=== PATIENT | female | born 1985 | race Caucasian/White ===

== ENCOUNTER 2019-09-18 22:28 | Inpatient (IN) | payer OTHER ==
--- NOTE | 2019-09-18 22:53 | ER Document Report ---
ED General - General Chief Complaint: Chest Pain Stated Complaint: CHEST PAIN Time Seen by Provider: 09/18/19 22:53 Primary Care Provider: MEI LANDAVERDE NP-C [Primary Care Provider] - Follow up as needed Mode of Arrival: Medic Information source: Patient TRAVEL OUTSIDE OF THE [place] IN LAST 30 DAYS: No - HPI Onset: Other - 2 days ago Onset/Duration: Gradual Quality of pain: Pressure - of chest Severity: Moderate Pain Level: 3 Associated symptoms: Body/muscle aches, Chills, Nonproductive cough, Fever Exacerbated by: Denies Relieved by: Denies Similar symptoms previously: No Recently seen / treated by doctor: No Notes: 34 year old female with a history of MS on Tecfidera here in the ER for fevers, chills, sweats, chest pains, shortness of breath for the last 2 days. 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 The patient arrived with EMS tachycardic and Febrile and somewhat anxious. - Related Data Allergies/Adverse Reactions: iodine Allergy (Verified 09/19/19 01:58) Past Medical History - General Information source: Patient - Social History Smoking Status: Current Every Day Smoker Frequency of alcohol use: Occasional Drug Abuse: None Lives with: Family Family History: Reviewed & Not Pertinent Patient has suicidal ideation: No Patient has homicidal ideation: No Neurological Medical History: Reports: Other - Multiple Sclerosis Review of Systems - Review of Systems Constitutional: Chills, Fever, Malaise, Weakness EENT: Throat pain Cardiovascular: Chest pain Respiratory: Cough Gastrointestinal: No symptoms reported Genitourinary: No symptoms reported Female Genitourinary: No symptoms reported Musculoskeletal: No symptoms reported Skin: No symptoms reported Hematologic/Lymphatic: No symptoms reported Neurological/Psychological: No symptoms reported -: Yes All other systems reviewed and negative Physical Exam - Vital signs Vitals: Temp 102.8 F H 09/18/19 22:29 - Notes Notes: GENERAL: Well-appearing, well-nourished and in no acute distress. HEAD: Atraumatic, normocephalic. EYES: Pupils equal round and reactive to light, extraocular movements intact, sclera anicteric, conjunctiva are normal. ENT: External ears normal, nares patent, oropharynx clear without exudates. Moist mucous membranes. NECK: Normal range of motion, supple without lymphadenopathy or JVD. LUNGS: Breath sounds clear to auscultation bilaterally and equal. No wheezes rales or rhonchi. HEART: Tachycardic, normal rhythm without murmurs, rubs or gallops. ABDOMEN: Soft, nontender, normoactive bowel sounds. No guarding, no rebound. No masses appreciated. EXTREMITIES: Normal range of motion, no pitting or edema. No clubbing or cyanosis. NEUROLOGICAL: Cranial nerves II through XII grossly intact. Normal speech, normal gait. PSYCH: Normal mood, normal affect. SKIN: Warm, Dry, normal turgor, no rashes or lesions noted. 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 Patient was tachycardic and febrile on ER arrival. Patient treated with Tylenol and Fluids. 09/19/19 00:46 The patient has remained tachycardic and hypotensive. Patient is febrile and therefore meets sepsis criteria. The patient does not have an elevated lactic acid and she does not need broad spectrum antibiotics since a viral process (such as COVID) seems most likely. Patient is currently on 2L of NS. Will bolus a liter of LR next. 09/19/19 01:45 The patient's MAP has improved to 65 with fluids but she remains overall hypotensive. Patient's heart rate has normalized at this point. Dr. Street of the Hospitalist Team will admit the patient but he would like a D-Dimer 09/19/19 01:47 Patient's D Dimer is negative making PE unlikely. Patient admitted as O[facility] to [facility]. Rapid COVID test pending. - Vital Signs Vital signs: Temp Pulse Resp BP Pulse Ox 100.2 F 19 81/51 L 99 09/19/19 00:24 09/19/19 01:01 09/19/19 01:00 09/19/19 01:01 - Laboratory Result Diagrams: 09/18/19 23:25 09/18/19 23:25 Laboratory results interpreted by me: 09/18/19 09/18/19 23:25 23:25 WBC 10.7 H RBC 3.71 L Hct 35.4 L Absolute Neuts (auto) 8.3 H Sodium 135.8 L Potassium 3.4 L Glucose 141 H - Diagnostic Test Radiology reviewed: Image reviewed, Reports reviewed - EKG Interpretation by Me EKG shows normal: Sinus rhythm, [place], Intervals, QRS Complexes, ST-T Waves Rate: Tachycardia Rhythm: NSR Discharge - Discharge Clinical Impression: Fever Qualifiers: Fever type: unspecified Qualified Code(s): R50.9 - Fever, unspecified Hypotension Qualifiers: Hypotension type: unspecified hypotension type Qualified Code(s): I95.9 - Hypotension, unspecified Chest pain Qualifiers: Chest pain type: unspecified Qualified Code(s): R07.9 - Chest pain, unspecified Condition: Fair Disposition: ADMITTED OBSERVATION Admitting Provider: Yenifer (Hospitalist) Unit Admitted: IMCU Referrals: MEI LANDAVERDE SLITTING MACHINE FEEDER-C [Primary Care Provider] - Follow up as needed
[2019-09-18] MEDS ORDERED: NORMAL SALINE 1000 ML 1,000 ML IV ONE (23:00)
[2019-09-18] MEDS ORDERED: ACETAMINOPHEN 325 MG TABLET PO ONE (23:08)
[2019-09-18] MEDS ORDERED: ACETAMINOPHEN 325 MG TABLET ONE (23:09)
[2019-09-18] MEDS ORDERED: KETOROLAC TROMETHAMINE INJ/PF 30 MG/1 ML SDV IV ONE (23:25)
--- NOTE | 2019-09-18 23:55 | RADIOLOGY REPORT (SQ) ---
EXAM DESCRIPTION: XR CHEST 1 VIEW COMPLETED DATE/TME: 09/18/2019 22:36 CLINICAL HISTORY: 34 years, Female, chest pain COMPARISON: EXAM DESCRIPTION: CLINICAL HISTORY: chest pain COMPARISON: None. FINDINGS: Single view of the chest is submitted. Cardiac silhouette is normal. No focal parenchymal or pleural disease. No acute bony abnormality. There is no significant pulmonary vascular engorgement. IMPRESSION: No evidence of acute cardiopulmonary disease.
[2019-09-18 23:59] LABS: ABSOLUTE EOSINOPHILS # (AUTO) 0.1 10^3/uL (0.0-0.6); ABSOLUTE LYMPHOCYTES (AUTO) 1.6 10^3/uL (0.5-4.7); ABSOLUTE MONOCYTES (AUTO) 0.7 10^3/uL (0.1-1.4); ABSOLUTE NEUT (AUTO) 8.3 10^3/uL (1.7-8.2); BASOPHILS % (AUTO) 0.3 % (0-2); EOSINOPHILS % (AUTO) 0.8 % (0-6); HEMATOCRIT 35.4 % (36.0-47.0); HEMOGLOBIN 12.4 g/dL (12.0-15.5); MEAN CORPUSCULAR HEMOGLOBIN 33.3 pg (27.0-33.4); MEAN CORPUSCULAR HGB CONC 34.9 g/dL (32.0-36.0); MEAN CORPUSCULAR VOLUME 96 fl (80-97); MONOCYTES % (AUTO) 6.6 % (3-13); PLATELET COUNT 209 10^3/uL (150-450); RED BLOOD COUNT 3.71 10^6/uL (3.72-5.28); RED CELL DISTRIBUTION WIDTH 12.8 % (11.5-14.0); SEGMENTED NEUTROPHILS % (AUTO) 77.3 % (42-78); TOTAL CELLS COUNTED % (AUTO) 100 %; WHITE BLOOD COUNT 10.7 10^3/uL (4.0-10.5)
[2019-09-19 00:11] LABS: ALKALINE PHOSPHATASE 56 U/L (38-126); ANION GAP 8 (5-19); ASPARTATE AMINO TRANSFERASE 18 U/L (14-36); BILIRUBIN,TOTAL 0.6 mg/dL (0.2-1.3); BLOOD UREA NITROGEN 11 mg/dL (7-20); CALCIUM 8.9 mg/dL (8.4-10.2); CARBON DIOXIDE 25 mmol/L (22-30); CHLORIDE 103 mmol/L (98-107); CREATINE KINASE 56 U/L (30-135); GLUCOSE 141 mg/dL (75-110); INTERNATIONAL RATION (INR) 1.04; POTASSIUM 3.4 mmol/L (3.6-5.0); PROTHROMBIN TIME 13.6 SEC (11.4-15.4); TOTAL PROTEIN 6.5 g/dL (6.3-8.2)
[2019-09-19 00:25] LABS: CREATINE KINASE MB < 0.22 ng/mL (<4.55); TROPONIN I < 0.012 ng/mL
[2019-09-19] MEDS: NORMAL SALINE 1000 ML 1,000 ML IV PRN ×2 (00:31→03:00)
[2019-09-19] MEDS ORDERED: RINGERS SOLUTION,LACTATED 1,000 ML IV ONE (00:48)
[2019-09-19 00:57] LABS: A TYPE INFLUENZA AG NEGATIVE (NEGATIVE); B INFLUENZA AG NEGATIVE (NEGATIVE)
[2019-09-19 02:33] LABS: APPEARANCE,URINE CLEAR; BILIRUBIN,URINE NEGATIVE (NEGATIVE); COLOR,URINE YELLOW; GLUCOSE, URINE NEGATIVE (NEGATIVE); KETONES,URINE NEGATIVE (NEGATIVE); LEUKOCYTE ESTERASE,URINE NEGATIVE (NEGATIVE); NITRITE,URINE NEGATIVE (NEGATIVE); PROTEIN,URINE NEGATIVE (NEGATIVE); URINE SPECIFIC GRAVITY 1.005; UROBILINOGEN,URINE NEGATIVE mg/dL (<2.0)
[2019-09-19] MEDS ORDERED: PROMETHAZINE HCL INJ 25 MG/1 ML VIAL IV PRN (03:46)
[2019-09-19] MEDS ORDERED: MAG HYDROX/AL HYDROX/SIMETH SUSP 30 ML UDCUP PO PRN (03:46)
[2019-09-19] MEDS ORDERED: MAGNESIUM HYDROXIDE SUSP 30 ML UDCUP PO PRN (03:46)
[2019-09-19] MEDS ORDERED: NICOTINE 21 MG/24 HR PATCH.TD24 TD PRN (03:53)
[2019-09-19] MEDS ORDERED: ACETAMINOPHEN 325 MG TABLET PO PRN (03:53)
[2019-09-19] MEDS ORDERED: IBUPROFEN 800 MG TABLET PO PRN (03:53)
[2019-09-19] MEDS ORDERED: GUAIFENESIN SYRP 200 MG/10 ML UDC PO PRN (03:53)
[2019-09-19] MEDS ORDERED: MORPHINE SULFATE 10 MG/ML INJ IV PRN ×2 (04:25)
--- NOTE | 2019-09-19 04:35 | PDOC H&P ---
History of Present Illness Admission Date/PCP: 09/19/2019 01:32 VARGAS SHIRLEY Patient complains of: Chest pain History of Present Illness: JASSON FLORIAN is a 34 year old female who presented to the emergency room a 2- day history of chest pain. She admits to intermittent exquisitely severe sharp pain with deep breathing or cough first appearing 2 days ago with a gradual increase in severity. Her chest pains generally last less than a minute before resolving spontaneously and are noted to be in the left anterior chest and are most greatly worsened by attempting to lay on her left side. Her chest pain has been accompanied by dyspnea, rhinorrhea, pharyngitis and a nonproductive cough. Chest pain has been associated with fever, chills, diaphoresis, malaise and ague. 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 She denies other associated or accompanying signs and symptoms. She denies prior similar episodes. She has not identified any additional aggravating or am eliorating factors for her chest pain. In the emergency room she was found to be febrile, hypotensive and tachycardic. She was treated with IV fluids and acetaminophen with partial defervescence and lessening of her tachycardia however she still remained hypotensive with a blood pressure of 85/51 (MAP 61). Influenza A and B screens were negative. Strep screen, d-dimer and COVID-19 screen were negative. Past Medical History Cardiac Medical History: Denies: Coronary Artery Disease, DVT, Hyperlipidema, Hypertension, Pulmonary Embolism Pulmonary Medical History: Denies: Asthma, Chronic Obstructive Pulmonary Disease (COPD) EENT Medical History: Denies: Cataracts, Ears - Hearing aids Neurological Medical History: Reports: Multiple Sclerosis Denies: Hemorrhagic CVA, Ischemic CVA, Seizures Neurological History Note: Has been taking Tecfidera for approximately 4 years for multiple sclerosis with no exacerbations since initiating therapy. Endocrine Medical History: Denies: Diabetes Mellitus Type 1, Diabetes Mellitus Type 2, Hyperthyroidism, Hypothyroidism, Obesity Renal/ Medical History: Reports: Nephrolithiasis Denies: Chronic Kidney Disease Renal/ History Note: History of severe nephrolithiasis with her pregnancies Malignancy Medical History: Reports: None GI Medical History: Denies: Cirrhosis, Crohn's Disease, Gastroesophageal Reflux Disease, Hepatitis, Peptic Ulcer Disease, Ulcerative Colitis Musculoskeltal Medical History: Denies: Arthritis, Fibromyalgia, Gout Skin Medical History: Denies: Eczema, Psoriasis Psychiatric Medical History: Reports: Tobacco Dependency Denies: Alcohol Dependency, Substance Abuse Traumatic Medical History: Reports: None Hematology: Denies: Anemia, Bleeding Tendencies Infectious Medical History: Reports: None Past Surgical History Past Surgical History: Reports: Section - X 3, Tonsillectomy, Tubal Ligation, Other - Double-J tubes x3 and a percutaneous nephrostomy for kidney stones Social History Information Source: Patient Lives with: Spouse/Significant other Smoking Status: Current Every Day Smoker Electronic Cigarette use?: No Frequency of Alcohol Use: Occasional Hx Recreational Drug Use: No Drugs: None Hx Prescription Drug Abuse: No - Advance Directive Resuscitation Status: Full Code Surrogate healthcare decision maker:: Dillon Solis Family History Family History: DM, Hypertension. denies: CAD, Malignancy Parental Family History Reviewed: Yes Children Family History Reviewed: No Sibling(s) Family History Reviewed.: Yes Medication/Allergy Allergies/Adverse Reactions: iodine Allergy (Verified 09/19/19 01:58) Review of Systems Constitutional: PRESENT: as per HPI, chills, fever(s), other. ABSENT: headache(s) Eyes: ABSENT: visual disturbances, other - Eye pain Ears: ABSENT: hearing changes, other - Ear pain Nose, Mouth, and Throat: ABSENT: headache(s), sore throat Cardiovascular: PRESENT: as per HPI, chest pain. ABSENT: palpitations Respiratory: PRESENT: as per HPI, cough, dyspnea. ABSENT: hemoptysis, sputum Gastrointestinal: ABSENT: abdominal pain, constipation, diarrhea, nausea, vomiting Genitourinary: ABSENT: dysuria, hematuria Musculoskeletal: ABSENT: back pain, joint swelling Integumentary: PRESENT: as per HPI, diaphoresis. ABSENT: pruritus, rash Neurological: ABSENT: confusion, convulsions, focal weakness, memory loss, syncope Psychiatric: PRESENT: anxiety - Acute since learning of possible COVID-19 exposure.. ABSENT: depression Endocrine: ABSENT: cold intolerance, heat intolerance, polydipsia, polyphagia, polyuria Hematologic/Lymphatic: ABSENT: easy bleeding, easy bruising Allergic/Immunologic: ABSENT: seasonal rhinorrhea Physical Exam Vital Signs: Temp Pulse Resp BP Pulse Ox 100.2 F 19 81/51 L 99 09/19/19 00:24 09/19/19 01:01 09/19/19 01:00 09/19/19 01:01 Intake & Output 09/17/19 09/18/19 09/19/19 23:59 23:59 23:59 Intake Total 1000 Balance 1000 Weight 60.2 kg General appearance: PRESENT: cooperative, mild distress Head exam: PRESENT: atraumatic, normocephalic Eye exam: PRESENT: conjunctiva pink. ABSENT: conjunctival injection, scleral icterus Ear exam: PRESENT: normal external ear exam. ABSENT: bleeding, drainage Mouth exam: PRESENT: dry mucosa, neck supple Neck exam: ABSENT: thyromegaly, tracheal deviation Respiratory exam: PRESENT: clear to auscultation johnny, symmetrical, unlabored, other - Pleural friction rub noted left anterior chest in the midclavicular line at the third intercostal space Cardiovascular exam: PRESENT: RRR, tachycardia. ABSENT: clicks, gallop, rubs Pulses: PRESENT: normal radial pulses, normal dorsalis pedis pul Vascular exam: PRESENT: normal capillary refill. ABSENT: pallor GI/Abdominal exam: PRESENT: normal bowel sounds, soft Rectal exam: PRESENT: deferred Extremities exam: ABSENT: joint swelling, pedal edema Musculoskeletal exam: ABSENT: deformity, dislocation Neurological exam: PRESENT: alert, oriented to person, oriented to place, oriented to time, oriented to situation, CN II-XII grossly intact. ABSENT: motor sensory deficit Psychiatric exam: PRESENT: anxious, appropriate affect Skin exam: PRESENT: dry, intact, warm. ABSENT: jaundice, rash, urticaria Results Laboratory Results: 09/18/19 23:25 09/18/19 23:25 09/18/19 09/18/19 09/18/19 23:00 23:25 23:25 WBC 10.7 H RBC 3.71 L Hgb 12.4 Hct 35.4 L MCV 96 MCH 33.3 MCHC 34.9 RDW 12.8 Plt Count 209 Seg Neutrophils % 77.3 Sodium 135.8 L Potassium 3.4 L Chloride 103 Carbon Dioxide 25 Anion Gap 8 BUN 11 Creatinine 0.58 Est GFR ( Amer) > 60 Glucose 141 H Lactic Acid 1.0 Calcium 8.9 Total Bilirubin 0.6 AST 18 Alkaline Phosphatase 56 Total Protein 6.5 Albumin 4.0 09/18/19 09/18/19 23:25 23:25 Creatine Kinase 56 CK-MB (CK-2) < 0.22 Troponin I < 0.012 Impressions: Chest X-Ray 09/18/19 22:36 IMPRESSION: No evidence of acute cardiopulmonary disease. Assessment and Plan - Diagnosis (1) Chest pain, pleuritic Is this a current diagnosis for this admission?: Yes (2) Hypotension Qualifiers: Hypotension type: unspecified hypotension type Qualified Code(s): I95.9 - Hypotension, unspecified Is this a current diagnosis for this admission?: Yes (3) Tachycardia Is this a current diagnosis for this admission?: Yes (4) Fever Qualifiers: Fever type: unspecified Qualified Code(s): R50.9 - Fever, unspecified Is this a current diagnosis for this admission?: Yes (5) Multiple sclerosis Is this a current diagnosis for this admission?: Yes (6) Tobacco use disorder, continuous Is this a current diagnosis for this admission?: Yes - Plan Summary Summary: Patient will be admitted to the medical floor where she will receive routine supportive and symptomatic cares. She will be continued on IV fluid at 167 mL/h using normal saline with 20 mEq of KCl per liter. Her fever will be controlled with Tylenol as required. Her blood pressure and tachycardia were monitored closely with fluid bolus or other intervention provided as required. She will use morphine sulfate 2 to 4 mg IV every 2 hours as needed for pain. She will use Ativan 1 mg IV every 4 hours as needed anxiety or restlessness. She will enjoy a regular diet. CBCs, metabolic profiles and magnesium levels will be followed as appropriate. Patient will receive supplemental oxygen as required to maintain adequate oxygen saturation. She will be continued on her usual home medications, as appropriate, as soon as her medication list has been verified and reconciled. A nicotine replacement patch is available for the patient's use, if desired. Smoking cessation has been advised and counseled briefly at the bedside. - Time Time Spent with patient: 15-24 minutes Smoking Cessation Education: 3 to 10 minutes Medications reviewed and adjusted accordingly: Yes Anticipated discharge: Home - Inpatient Certification Based on my medical assessment, after consideration of the patient's comorbidities, presenting symptoms, or acuity I expect that the services needed warrant INPATIENT care.: No I certify that my determination is in accordance with my understanding of Medicare's requirements for reasonable and necessary INPATIENT services [42 CFR 412.3e].: No Medical Necessity: Need Close Monitoring Due to Risk of Patient Decompensation, Need For IV Fluids
[2019-09-19] MEDS: MORPHINE SULFATE 10 MG/ML INJ IV PRN ×9 (04:36→23:31)
[2019-09-19] MEDS: POTASSI CL 20 MEQ/D5NS 1L 20 MEQ/1,000 ML RTUINJ IV PRN ×2 (05:03→11:48)
[2019-09-19] MEDS: HEPARIN SOD (PORCINE) 5,000 UNIT/ML 1 ML VIAL SUBCUT SCH ×3 (05:05→22:28)
[2019-09-19 05:22] LABS: FREE T3 4.6 pg/mL (2.77-5.27)
[2019-09-19 05:36] LABS: THYROID STIMULATING HORMONE 1.69 uIU/mL (0.47-4.68)
[2019-09-19] MEDS: FAMOTIDINE 20 MG TABLET PO SCH ×2 (09:12→22:27)
[2019-09-19] MEDS: DOCUSATE SODIUM 100 MG CAPSULE PO SCH ×2 (09:19→17:02)
--- NOTE | 2019-09-19 10:15 | EKG REPORT ---
SEVERITY:- OTHERWISE NORMAL ECG - SINUS TACHYCARDIA : Confirmed by: Elle Greene MD 19-Sep-2019 10:15:36
[2019-09-19] MEDS ORDERED: AZITHROMYCIN 250 MG TABLET PO ONE (11:12)
--- NOTE | 2019-09-19 11:12 | Progress Note ---
Provider Note Provider Note: Patient was admitted after midnight I will put a provider note in. The chest x- ray is negative, white count is normal 10.7, d-dimer was normal, lactic acid was 1.0, flu swab negative, COVID negative ,rapid strep negative. Sed rate from this morning is normal at 26. CRP elevated at 87. EKG from last night just shows sinus tachycardia Vital signs this morning show the temperature 98.5 pulse of 88 blood pressure 91/53 and O2 sats 97% on room air. Him going to order a CT angiogram of the chest. I am going to start her off on p.o. Zithromax. Patient is on Motrin 800 every 6 hours as needed I am going to change this to 800 every 8 hours scheduled. He also has morphine ordered as needed for pain. I have explained all this to the patient. This morning I examined her with the nurse present she has slight tenderness to palpation over the left anterior chest wall but significant pain and tenderness that reproduces her symptoms with arm movements above the head and back and forth
--- NOTE | 2019-09-19 13:26 | RADIOLOGY REPORT (SQ) ---
EXAM DESCRIPTION: CT CHEST WITHOUT IMAGES COMPLETED DATE/TIME: 09/19/2019 1:03 pm REASON FOR STUDY: Chest wall pain COMPARISON: Radiographs from yesterday. TECHNIQUE: CT scan performed of the chest without intravenous contrast. Images reviewed with lung, soft tissue and bone windows. Reconstructed coronal and sagittal MPR images reviewed. All images st ored on PACS. All CT scanners at this facility use dose modulation, iterative reconstruction, and/or weight based d osing when appropriate to reduce radiation dose to as low as reasonably achievable (ALARA). [facility]: Dose Right [facility]: CareDose [facility]: Dose Right [facility]: Teradose 4D [facility]: Smart [employer] RADIATION DOSE: CT Rad equipment meets quality standard of care and radiation dose reduction techniq ues were employed. CTDIvol: 5.4 mGy. DLP: 188 mGy-cm. mGy. LIMITATIONS: No technical limitations. FINDINGS: LUNGS AND PLEURA: Left upper lobe patchy consolidation consistent with pneumonia. Focal a irspace disease also noted in the right middle lobe medially. Trace left pleural fluid with addition al subsegmental volume loss in the lower lobes. HILAR AND MEDIASTINAL STRUCTURES: No identified masses or abnormal nodes. No obvious aneurysm. HEART AND VASCULAR STRUCTURES: No aneurysm. No pericardial effusion. UPPER ABDOMEN: No significant findings. Limited exam. THYROID AND OTHER SOFT TISSUES: No masses. No adenopathy. BONES: No significant finding. HARDWARE: None in the chest. OTHER: No other significant findings. IMPRESSION: 1. Multifocal pneumonia, left upper lobe and right middle lobe. TECHNICAL DOCUMENTATION: JOB ID: [id number] Quality ID # [id number]: Final reports with documentation of one or more dose reduction techniques (e.g., Au tomated exposure control, adjustment of the mA and/or kV according to patient size, use of iterative reconstruction technique) 2010 [employer]- All Rights Reserved Reading location - IP/workstation name: [email or web address]
[2019-09-19] MEDS: IBUPROFEN 800 MG TABLET PO SCH ×2 (14:23→22:27)
[2019-09-20] MEDS: LORAZEPAM INJ 2 MG/1 ML VIAL IV PRN ×2 (02:03→07:33)
[2019-09-20 05:59] LABS: HEMOGLOBIN 11.5 g/dL (12.0-15.5); MEAN CORPUSCULAR HEMOGLOBIN 33.7 pg (27.0-33.4); MEAN CORPUSCULAR HGB CONC 34.9 g/dL (32.0-36.0); MEAN CORPUSCULAR VOLUME 96 fl (80-97); PLATELET COUNT 185 10^3/uL (150-450); RED BLOOD COUNT 3.42 10^6/uL (3.72-5.28); WHITE BLOOD COUNT 10.1 10^3/uL (4.0-10.5)
[2019-09-20 06:22] LABS: ANION GAP 7 (5-19); BLOOD UREA NITROGEN 5 mg/dL (7-20); CALCIUM 8.6 mg/dL (8.4-10.2); CARBON DIOXIDE 24 mmol/L (22-30); CHLORIDE 107 mmol/L (98-107); GLUCOSE 89 mg/dL (75-110); POTASSIUM 3.9 mmol/L (3.6-5.0)
[2019-09-20] MEDS: IBUPROFEN 800 MG TABLET PO SCH ×3 (06:42→22:07)
[2019-09-20] MEDS: HEPARIN SOD (PORCINE) 5,000 UNIT/ML 1 ML VIAL SUBCUT SCH ×3 (06:43→22:07)
[2019-09-20] MEDS ORDERED: ESZOPICLONE 2 MG PO PRN (07:32)
[2019-09-20] MEDS: MORPHINE SULFATE 10 MG/ML INJ IV PRN ×3 (07:34→22:05)
[2019-09-20] MEDS ORDERED: ZOLPIDEM TARTRATE 5 MG TABLET PO PRN ×2 (07:54)
[2019-09-20] MEDS ORDERED: (PENDING PHARMACY ID) (Duloxetine Hcl [Duloxetine Hcl] 60 MG) PO SCH (10:00)
[2019-09-20] MEDS ORDERED: DULOXETINE HCL 30 MG CAPSULE.DR PO SCH (10:00)
[2019-09-20] MEDS: SPIRONOLACTONE 25 MG TABLET PO SCH (10:09)
[2019-09-20] MEDS: FAMOTIDINE 20 MG TABLET PO SCH ×2 (10:09→22:07)
[2019-09-20] MEDS: CHOLECALCIFEROL (D3) 1,000 UNIT (25 MCG) TABLET PO SCH (10:10)
[2019-09-20] MEDS: AZITHROMYCIN 500 MG in DEXTROSE 5%-WATER 250 ML IV SCH (10:10)
[2019-09-20] MEDS: DULOXETINE HCL 30 MG CAPSULE.DR PO SCH (10:10)
[2019-09-20] MEDS: DOCUSATE SODIUM 100 MG CAPSULE PO SCH ×2 (10:10→17:12)
--- NOTE | 2019-09-20 10:37 | PDOC PROGRESS REPORT ---
Subjective Progress Note for:: 09/20/19 Reason For Visit: SIRS, FEVER, PLEURITIC CHEST PAIN, TACHYCARDIA, 09/20/2019 Pneumonia, left chest wall pain, tachycardia, sepsis, anxiety, depression, fever, tobacco abuse, multiple sclerosis Physical Exam Vital Signs: Temp Pulse Resp BP Pulse Ox 99.9 F 110 H 17 97/59 L 93 09/20/19 08:15 09/20/19 08:15 09/20/19 08:15 09/20/19 08:15 09/20/19 08:15 Intake & Output 09/19/19 09/20/19 09/21/19 06:59 06:59 06:59 Intake Total 4000 3108 Output Total 2450 Balance 4000 658 Weight 60.2 kg 59.6 kg General appearance: PRESENT: mild distress Respiratory exam: PRESENT: decreased breath sounds Cardiovascular exam: PRESENT: RRR. ABSENT: diastolic murmur, rubs, systolic murmur Neurological exam: PRESENT: alert, awake, oriented to person, oriented to place, oriented to time, oriented to situation, CN II-XII grossly intact. ABSENT: motor sensory deficit Psychiatric exam: PRESENT: anxious Results Laboratory Results: 09/20/19 05:10 09/20/19 05:10 09/20/19 09/20/19 05:10 05:10 WBC 10.1 RBC 3.42 L Hgb 11.5 L Hct 33.0 L MCV 96 MCH 33.7 H MCHC 34.9 RDW 13.0 Plt Count 185 Sodium 138.4 Potassium 3.9 Chloride 107 Carbon Dioxide 24 Anion Gap 7 BUN 5 L Creatinine 0.55 Est GFR ( Amer) > 60 Glucose 89 Calcium 8.6 Magnesium 1.9 09/18/19 09/18/19 23:25 23:25 Creatine Kinase 56 CK-MB (CK-2) < 0.22 Troponin I < 0.012 Impressions: Chest X-Ray 09/18/19 22:36 IMPRESSION: No evidence of acute cardiopulmonary disease. Chest CT 09/19/19 00:00 IMPRESSION: 1. Multifocal pneumonia, left upper lobe and right middle lobe. Assessment and Plan - Diagnosis (1) Pneumonia Is this a current diagnosis for this admission?: Yes (2) Anxiety Is this a current diagnosis for this admission?: Yes (3) Depression Is this a current diagnosis for this admission?: Yes (4) Chest pain Qualifiers: Chest pain type: unspecified Qualified Code(s): R07.9 - Chest pain, unspecified Is this a current diagnosis for this admission?: Yes (5) Fever Qualifiers: Fever type: unspecified Qualified Code(s): R50.9 - Fever, unspecified Is this a current diagnosis for this admission?: Yes (6) Hypotension Qualifiers: Hypotension type: unspecified hypotension type Qualified Code(s): I95.9 - Hypotension, unspecified Is this a current diagnosis for this admission?: Yes (7) Multiple sclerosis Is this a current diagnosis for this admission?: Yes (8) Tachycardia Is this a current diagnosis for this admission?: Yes (9) Tobacco use disorder, continuous Is this a current diagnosis for this admission?: Yes - Plan Summary Summary: Patient will be admitted to the medical floor where she will receive routine supportive and symptomatic cares. She will be continued on IV fluid at 167 mL/h using normal saline with 20 mEq of KCl per liter. Her fever will be controlled with Tylenol as required. Her blood pressure and tachycardia were monitored closely with fluid bolus or other intervention provided as required. She will use morphine sulfate 2 to 4 mg IV every 2 hours as needed for pain. She will use Ativan 1 mg IV every 4 hours as needed anxiety or restlessness. She will enjoy a regular diet. CBCs, metabolic profiles and magnesium levels will be followed as appropriate. Patient will receive supplemental oxygen as required to maintain adequate oxygen saturation. She will be continued on her usual home medications, as appropriate, as soon as her medication list has been verified and reconciled. A nicotine replacement patch is available for the patient's use, if desired. Smoking cessation has been advised and counseled briefly at the bedside. 09/20/2019 Patient continues to be afebrile 98 3 , pulse is between 80 and 100 , blood pressure is normal for her 97/65 ,O2 sat 95% on room air White count is gone down slightly to 10.1 blood cultures negative x24 hours. Have added Percocet every 6 hours as needed her medicine for multiple sclerosis has been added. Unfortunately we do not have Lunesta here These were all medicine she was on at home which she was taking at home. Also added BuSpar for anxiety, which seems to be worse because of her mother's health condition and the fact that the patient is in the hospital here. Patient appears to be stable from her pneumonia which is her admitting diagnosis, patient came in with fever and pleuritic left-sided chest wall pain. Plain chest film did not show pneumonia however CT scan did. She is currently on IV Zithromax - Time Time Spent with patient: 25-34 minutes
[2019-09-20] MEDS: BUSPIRONE HCL 10 MG TABLET PO SCH ×2 (11:56→22:07)
[2019-09-20] MEDS: OXYCODONE-ACETAMINOPHEN 5-325 MG TABLET PO PRN (14:29)
[2019-09-20] MEDS ORDERED: (PENDING PHARMACY ID) (Metformin Hcl [Metformin Hcl Er] 500 MG) PO SCH ×2 (17:00)
[2019-09-20] MEDS: METFORMIN HCL 500 MG TABLET PO SCH (17:28)
[2019-09-21] MEDS: MORPHINE SULFATE 10 MG/ML INJ IV PRN ×4 (05:32→20:26)
[2019-09-21] MEDS: IBUPROFEN 800 MG TABLET PO SCH ×3 (05:35→21:20)
[2019-09-21] MEDS: HEPARIN SOD (PORCINE) 5,000 UNIT/ML 1 ML VIAL SUBCUT SCH ×3 (05:35→21:20)
[2019-09-21 06:49] LABS: HEMATOCRIT 32.2 % (36.0-47.0); HEMOGLOBIN 11.4 g/dL (12.0-15.5); MEAN CORPUSCULAR HEMOGLOBIN 33.7 pg (27.0-33.4); MEAN CORPUSCULAR HGB CONC 35.2 g/dL (32.0-36.0); MEAN CORPUSCULAR VOLUME 96 fl (80-97); PLATELET COUNT 195 10^3/uL (150-450); RED BLOOD COUNT 3.37 10^6/uL (3.72-5.28); RED CELL DISTRIBUTION WIDTH 12.6 % (11.5-14.0); WHITE BLOOD COUNT 8.9 10^3/uL (4.0-10.5)
[2019-09-21] MEDS: BUSPIRONE HCL 10 MG TABLET PO SCH ×2 (09:11→21:20)
[2019-09-21] MEDS: CHOLECALCIFEROL (D3) 1,000 UNIT (25 MCG) TABLET PO SCH (09:11)
[2019-09-21] MEDS: OXYCODONE-ACETAMINOPHEN 5-325 MG TABLET PO PRN ×3 (09:11→19:03)
[2019-09-21] MEDS: SPIRONOLACTONE 25 MG TABLET PO SCH (09:11)
[2019-09-21] MEDS: METFORMIN HCL 500 MG TABLET PO SCH ×2 (09:11→17:07)
[2019-09-21] MEDS: FAMOTIDINE 20 MG TABLET PO SCH ×2 (09:11→21:20)
[2019-09-21] MEDS: DULOXETINE HCL 30 MG CAPSULE.DR PO SCH (09:11)
[2019-09-21] MEDS: AZITHROMYCIN 500 MG in DEXTROSE 5%-WATER 250 ML IV SCH (09:12)
[2019-09-21] MEDS: DOCUSATE SODIUM 100 MG CAPSULE PO SCH ×2 (09:12→17:07)
--- NOTE | 2019-09-21 09:15 | PDOC PROGRESS REPORT ---
Subjective Progress Note for:: 09/21/19 Subjective:: 34 year old female who presented to the emergency room a 2-day history of chest pain. She admits to intermittent exquisitely severe sharp pain with deep breathing or cough first appearing 2 days ago with a gradual increase in severity. Her chest pains generally last less than a minute before resolving spontaneously and are noted to be in the left anterior chest and are most greatly worsened by attempting to lay on her left side. Her chest pain has been accompanied by dyspnea, rhinorrhea, pharyngitis and a nonproductive cough. Chest pain has been associated with fever, chills, diaphoresis, malaise and ague. 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 She denies other associated or accompanying signs and symptoms. She denies prior similar episodes. She has not identified any additional aggravating or ameliorating factors for her chest pain. In the emergency room she was found to be febrile, hypotensive and tachycardic. She was treated with IV fluids and acetaminophen with partial defervescence and lessening of her tachycardia however she still remained hypotensive with a blood pressure of 85/51 (MAP 61). Influenza A and B screens were negative. Strep screen, d-dimer and COVID-19 screen were negative. 09/20/2019 Pneumonia, left chest wall pain, tachycardia, sepsis, anxiety, depression, fever, tobacco abuse, multiple sclerosis 09/21/2019-patient is comfortably in the bed communicating well. Still complaining of left-sided chest pain. On IV morphine 2 mg every 4 hours and also on Percocets. Blood cultures are negative so far. COVID testing is negative. T-max is 99.0 this morning. And is to repeat the chest x-ray tomorrow white cell count is within normal limits. She is a smoker smoking counseling was provided today. Reason For Visit: SIRS, FEVER, PLEURITIC CHEST PAIN, TACHYCARDIA, Physical Exam Vital Signs: Temp Pulse Resp BP Pulse Ox 99.0 F 76 18 106/63 95 09/20/19 15:09 09/21/19 07:00 09/20/19 15:09 09/20/19 15:09 09/20/19 15:09 Intake & Output 09/20/19 09/21/19 09/22/19 06:59 06:59 06:59 Intake Total 3108 1080 Output Total 2450 800 Balance 658 280 Weight 59.6 kg 58.9 kg General appearance: PRESENT: no acute distress, well-developed, well-nourished Head exam: PRESENT: atraumatic Eye exam: PRESENT: PERRLA Teeth exam: PRESENT: poor dentation Neck exam: ABSENT: carotid bruit, JVD, lymphadenopathy, thyromegaly Respiratory exam: PRESENT: decreased breath sounds Cardiovascular exam: PRESENT: RRR. ABSENT: diastolic murmur, rubs, systolic murmur Vascular exam: PRESENT: normal capillary refill GI/Abdominal exam: PRESENT: normal bowel sounds, soft. ABSENT: distended, guarding, mass, organolmegaly, rebound, tenderness Rectal exam: PRESENT: deferred Extremities exam: PRESENT: full ROM. ABSENT: calf tenderness, clubbing, pedal edema Neurological exam: PRESENT: alert, awake, oriented to person, oriented to place, oriented to time, oriented to situation, CN II-XII grossly intact. ABSENT: motor sensory deficit Psychiatric exam: PRESENT: appropriate affect, normal mood. ABSENT: homicidal ideation, suicidal ideation Results Laboratory Results: 09/21/19 05:21 09/20/19 05:10 09/21/19 09/21/19 05:21 05:21 WBC 8.9 RBC 3.37 L Hgb 11.4 L Hct 32.2 L MCV 96 MCH 33.7 H MCHC 35.2 RDW 12.6 Plt Count 195 Magnesium 2.1 09/18/19 09/18/19 23:25 23:25 Creatine Kinase 56 CK-MB (CK-2) < 0.22 Troponin I < 0.012 Impressions: Chest X-Ray 09/18/19 22:36 IMPRESSION: No evidence of acute cardiopulmonary disease. Chest CT 09/19/19 00:00 IMPRESSION: 1. Multifocal pneumonia, left upper lobe and right middle lobe. Assessment and Plan - Diagnosis (1) Pneumonia Is this a current diagnosis for this admission?: Yes Plan: 09/21/2019-patient admitted for chest pains found to have a fever of 103 and a chest x-ray and CT scan indicated of multifocal pneumonia. Cover test is negative. Blood cultures are negative. WBC count this morning is 8900. T-max is 99. Pulse ox is 95% on room air. Patient is presently on Zithromax 500 mg IV daily. plan is to repeat the chest x-ray tomorrow and labs tomorrow. Again counseling was provided. (2) Anxiety Is this a current diagnosis for this admission?: Yes Plan: 09/21/2019-patient is presently on BuSpar 10 mg p.o. every 12 hours, Cymbalta 60 mg daily, lorazepam 1 mg every 4 as needed. Denies any anxiety depression at this time. (3) Chest pain, pleuritic Is this a current diagnosis for this admission?: Yes Plan: 09/21/2019-patient is still complaining of left-sided chest pain receiving morphine 2 mg IV every 4 as needed, Percocet 1 tablet every 6 as needed. Plan is to continue the present management at this time. To arrange for a K pad to place in the left side of the chest. (4) Hypotension Qualifiers: Hypotension type: unspecified hypotension type Qualified Code(s): I95.9 - Hypotension, unspecified Is this a current diagnosis for this admission?: Yes Plan: 09/21/2019-blood pressure today is 106/63 asymptomatic. Plan is to hold spironolactone for today. (5) Multiple sclerosis Is this a current diagnosis for this admission?: Yes (6) Tachycardia Is this a current diagnosis for this admission?: Yes Plan: 09/21/2019-heart rate today 68. Tachycardia is resolved. (7) Tobacco use disorder, continuous Is this a current diagnosis for this admission?: No Plan: 09/21/2019-patient is a daily smoker smoking for the last 4 years. Smoking counseling was provided. Advised to quit smoking. - Plan Summary Summary: Patient will be admitted to the medical floor where she will receive routine supportive and symptomatic cares. She will be continued on IV fluid at 167 mL/h using normal saline with 20 mEq of KCl per liter. Her fever will be controlled with Tylenol as required. Her blood pressure and tachycardia were monitored closely with fluid bolus or other intervention provided as required. She will use morphine sulfate 2 to 4 mg IV every 2 hours as needed for pain. She will use Ativan 1 mg IV every 4 hours as needed anxiety or restlessness. She will enjoy a regular diet. CBCs, metabolic profiles and magnesium levels will be followed as appropriate. Patient will receive supplemental oxygen as required to maintain adequate oxygen saturation. She will be continued on her usual home medications, as appropriate, as soon as her medication list has been verified and reconciled. A nicotine replacement patch is available for the patient's use, if desired. Smoking cessation has been advised and counseled briefly at the bedside. 09/20/2019 Patient continues to be afebrile 98 3 , pulse is between 80 and 100 , blood pressure is normal for her 97/65 ,O2 sat 95% on room air White count is gone down slightly to 10.1 blood cultures negative x24 hours. Have added Percocet every 6 hours as needed her medicine for multiple sclerosis has been added. Unfortunately we do not have Lunesta here These were all medicine she was on at home which she was taking at home. Also added BuSpar for anxiety, which seems to be worse because of her mother's health condition and the fact that the patient is in the hospital here. Patient appears to be stable from her pneumonia which is her admitting diagnosis, patient came in with fever and pleuritic left-sided chest wall pain. Plain chest film did not show pneumonia however CT scan did. She is currently on IV Zithromax
[2019-09-22] MEDS: MORPHINE SULFATE 10 MG/ML INJ IV PRN ×2 (00:28→09:18)
[2019-09-22] MEDS: LORAZEPAM INJ 2 MG/1 ML VIAL IV PRN (00:34)
[2019-09-22] MEDS: HEPARIN SOD (PORCINE) 5,000 UNIT/ML 1 ML VIAL SUBCUT SCH (05:45)
[2019-09-22] MEDS: IBUPROFEN 800 MG TABLET PO SCH (05:45)
[2019-09-22 06:15] LABS: ABSOLUTE EOSINOPHILS # (AUTO) 0.3 10^3/uL (0.0-0.6); ABSOLUTE MONOCYTES (AUTO) 0.7 10^3/uL (0.1-1.4); ABSOLUTE NEUT (AUTO) 4.1 10^3/uL (1.7-8.2); BASOPHILS % (AUTO) 0.4 % (0-2); HEMATOCRIT 30.6 % (36.0-47.0); HEMOGLOBIN 10.7 g/dL (12.0-15.5); LYMPHOCYTES % (AUTO) 27.9 % (13-45); MEAN CORPUSCULAR HEMOGLOBIN 33.4 pg (27.0-33.4); MEAN CORPUSCULAR HGB CONC 35.1 g/dL (32.0-36.0); MEAN CORPUSCULAR VOLUME 95 fl (80-97); MONOCYTES % (AUTO) 9.9 % (3-13); PLATELET COUNT 207 10^3/uL (150-450); RED CELL DISTRIBUTION WIDTH 12.6 % (11.5-14.0); SEGMENTED NEUTROPHILS % (AUTO) 57.8 % (42-78); TOTAL CELLS COUNTED % (AUTO) 100 %; WHITE BLOOD COUNT 7.1 10^3/uL (4.0-10.5)
[2019-09-22 06:33] LABS: ALBUMIN 3.3 g/dL (3.5-5.0); ALKALINE PHOSPHATASE 46 U/L (38-126); ANION GAP 8 (5-19); ASPARTATE AMINO TRANSFERASE 14 U/L (14-36); BLOOD UREA NITROGEN 14 mg/dL (7-20); CALCIUM 8.4 mg/dL (8.4-10.2); CARBON DIOXIDE 24 mmol/L (22-30); CHLORIDE 106 mmol/L (98-107); GLUCOSE 92 mg/dL (75-110); POTASSIUM 3.8 mmol/L (3.6-5.0); TOTAL PROTEIN 5.6 g/dL (6.3-8.2)
[2019-09-22 06:38] LABS: BILIRUBIN,TOTAL < 0.1 mg/dL (0.2-1.3)
[2019-09-22] MEDS: METFORMIN HCL 500 MG TABLET PO SCH (07:46)
[2019-09-22] MEDS: OXYCODONE-ACETAMINOPHEN 5-325 MG TABLET PO PRN (07:46)
--- NOTE | 2019-09-22 08:33 | PDOC PROGRESS REPORT ---
Subjective Progress Note for:: 09/22/19 Subjective:: 34 year old female who presented to the emergency room a 2-day history of chest pain. She admits to intermittent exquisitely severe sharp pain with deep breathing or cough first appearing 2 days ago with a gradual increase in severity. Her chest pains generally last less than a minute before resolving spontaneously and are noted to be in the left anterior chest and are most greatly worsened by attempting to lay on her left side. Her chest pain has been accompanied by dyspnea, rhinorrhea, pharyngitis and a nonproductive cough. Chest pain has been associated with fever, chills, diaphoresis, malaise and ague. 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 She denies other associated or accompanying signs and symptoms. She denies prior similar episodes. She has not identified any additional aggravating or ameliorating factors for her chest pain. In the emergency room she was found to be febrile, hypotensive and tachycardic. She was treated with IV fluids and acetaminophen with partial defervescence and lessening of her tachycardia however she still remained hypotensive with a blood pressure of 85/51 (MAP 61). Influenza A and B screens were negative. Strep screen, d-dimer and COVID-19 screen were negative. 09/20/2019 Pneumonia, left chest wall pain, tachycardia, sepsis, anxiety, depression, fever, tobacco abuse, multiple sclerosis 09/21/2019-patient is comfortably in the bed communicating well. Still complaining of left-sided chest pain. On IV morphine 2 mg every 4 hours and also on Percocets. Blood cultures are negative so far. COVID testing is negative. T-max is 99.0 this morning. And is to repeat the chest x-ray tomorrow white cell count is within normal limits. She is a smoker smoking counseling was provided today. 09/22/19-at the time of admission Covid test is came back negative. Patient is requesting to repeat the cover test. She is concerned about false negatives. We are going to call [facility] to go through the case and get further advice. Chest x-ray was done this morning as a follow-up report is pending. Patient has a T-max of 99 last night she is concerned about fever. This morning T-max is 98. Blood cultures are negative. Cultures came back group B streptococcus normal respiratory rohit. Reason For Visit: PNEUMONIA,CHEST PAIN Physical Exam Vital Signs: Temp Pulse Resp BP Pulse Ox 97.7 F 71 16 90/48 L 94 09/22/19 03:38 09/22/19 07:00 09/22/19 03:38 09/22/19 03:38 09/22/19 03:38 Intake & Output 09/21/19 09/22/19 09/23/19 06:59 06:59 06:59 Intake Total 1080 2807 Output Total 800 2050 Balance 280 757 Weight 58.9 kg 62 kg General appearance: PRESENT: no acute distress, well-developed, well-nourished Head exam: PRESENT: atraumatic Eye exam: PRESENT: PERRLA Mouth exam: PRESENT: moist, tongue midline Teeth exam: PRESENT: poor dentation Neck exam: ABSENT: carotid bruit, JVD, lymphadenopathy, thyromegaly Respiratory exam: PRESENT: decreased breath sounds Cardiovascular exam: PRESENT: RRR. ABSENT: diastolic murmur, rubs, systolic murmur GI/Abdominal exam: PRESENT: normal bowel sounds, soft. ABSENT: distended, gua rding, mass, organolmegaly, rebound, tenderness Rectal exam: PRESENT: deferred Extremities exam: PRESENT: full ROM. ABSENT: calf tenderness, clubbing, pedal edema Neurological exam: PRESENT: alert, awake, oriented to person, oriented to place, oriented to time, oriented to situation, CN II-XII grossly intact. ABSENT: jennifer r sensory deficit Psychiatric exam: PRESENT: appropriate affect, normal mood. ABSENT: homicidal ideation, suicidal ideation Results Laboratory Results: 09/22/19 05:35 09/22/19 05:35 09/22/19 09/22/19 05:35 05:35 WBC 7.1 RBC 3.20 L Hgb 10.7 L Hct 30.6 L MCV 95 MCH 33.4 MCHC 35.1 RDW 12.6 Plt Count 207 Seg Neutrophils % 57.8 Sodium 138.0 Potassium 3.8 Chloride 106 Carbon Dioxide 24 Anion Gap 8 BUN 14 Creatinine 0.57 Est GFR ( Amer) > 60 Glucose 92 Calcium 8.4 Magnesium 1.9 Total Bilirubin < 0.1 L AST 14 Alkaline Phosphatase 46 Total Protein 5.6 L Albumin 3.3 L 09/19/19 01:25 Throat Throat Culture - Final Group A Beta Streptococcus Normal Rohit 09/18/19 09/18/19 23:25 23:25 Creatine Kinase 56 CK-MB (CK-2) < 0.22 Troponin I < 0.012 Impressions: Chest CT 09/19/19 00:00 IMPRESSION: 1. Multifocal pneumonia, left upper lobe and right middle lobe. Assessment and Plan - Diagnosis (1) Pneumonia Is this a current diagnosis for this admission?: Yes Plan: 09/21/2019-patient admitted for chest pains found to have a fever of 103 and a chest x-ray and CT scan indicated of multifocal pneumonia. Cover test is negative. Blood cultures are negative. WBC count this morning is 8900. T-max is 99. Pulse ox is 95% on room air. Patient is presently on Zithromax 500 mg IV daily. plan is to repeat the chest x-ray tomorrow and labs tomorrow. Again counseling was provided. 09/22/2019-patient admitted with multifocal pneumonia, cover test is negative. Blood cultures are negative. Follow-up chest x-ray is pending. T-max is 99 last night. Patient is requesting to repeat the call with test. We can to be in touch with the [facility] for further advice. (2) Anxiety Is this a current diagnosis for this admission?: Yes Plan: 09/21/2019-patient is presently on BuSpar 10 mg p.o. every 12 hours, Cymbalta 60 mg daily, lorazepam 1 mg every 4 as needed. Denies any anxiety depression at this time. (3) Chest pain, pleuritic Is this a current diagnosis for this admission?: Yes Plan: 09/21/2019-patient is still complaining of left-sided chest pain receiving morphine 2 mg IV every 4 as needed, Percocet 1 tablet every 6 as needed. Plan is to continue the present management at this time. To arrange for a K pad to place in the left side of the chest. (4) Hypotension Qualifiers: Hypotension type: unspecified hypotension type Qualified Code(s): I95.9 - Hypotension, unspecified Is this a current diagnosis for this admission?: Yes Plan: 09/21/2019-blood pressure today is 106/63 asymptomatic. Plan is to hold spironolactone for today. 09/22/2019-blood pressure today is 100/70. Asymptomatic. (5) Multiple sclerosis Is this a current diagnosis for this admission?: Yes (6) Tachycardia Is this a current diagnosis for this admission?: Yes Plan: 09/21/2019-heart rate today 68. Tachycardia is resolved. (7) Tobacco use disorder, continuous Is this a current diagnosis for this admission?: No Plan: 09/21/2019-patient is a daily smoker smoking for the last 4 years. Smoking counseling was provided. Advised to quit smoking. - Plan Summary Summary: Patient will be admitted to the medical floor where she will receive routine supportive and symptomatic cares. She will be continued on IV fluid at 167 mL/h using normal saline with 20 mEq of KCl per liter. Her fever will be controlled with Tylenol as required. Her blood pressure and tachycardia were monitored closely with fluid bolus or other intervention provided as required. She will use morphine sulfate 2 to 4 mg IV every 2 hours as needed for pain. She will use Ativan 1 mg IV every 4 hours as needed anxiety or restlessness. She will enjoy a regular diet. CBCs, metabolic profiles and magnesium levels will be followed as appropriate. Patient will receive supplemental oxygen as required to maintain adequate oxygen saturation. She will be continued on her usual home medications, as appropriate, as soon as her medication list has been verified and reconciled. A nicotine replacement patch is available for the patient's use, if desired. Smoking cessation has been advised and counseled briefly at the bedside. 09/20/2019 Patient continues to be afebrile 98 3 , pulse is between 80 and 100 , blood pressure is normal for her 97/65 ,O2 sat 95% on room air White count is gone down slightly to 10.1 blood cultures negative x24 hours. Have added Percocet every 6 hours as needed her medicine for multiple sclerosis has been added. Unfortunately we do not have Lunesta here These were all medicine she was on at home which she was taking at home. Also added BuSpar for anxiety, which seems to be worse because of her mother's health condition and the fact that the patient is in the hospital here. Patient appears to be stable from her pneumonia which is her admitting diagnosis, patient came in with fever and pleuritic left-sided chest wall pain. Plain chest film did not show pneumonia however CT scan did. She is currently on IV Zithromax
--- NOTE | 2019-09-22 08:37 | RADIOLOGY REPORT (SQ) ---
EXAM DESCRIPTION: CHEST 2 VIEWS IMAGES COMPLETED DATE/TIME: 09/22/2019 7:35 am REASON FOR STUDY: pneumonia COMPARISON: 09/18/2019 EXAM PARAMETERS: NUMBER OF VIEWS: two views TECHNIQUE: Digital Frontal and Lateral radiographic views of the chest acquired. RADIATION DOSE: NA LIMITATIONS: none FINDINGS: LUNGS AND PLEURA: Mild residual lingular opacities seen best in the lateral projection. N o new airspace disease. No pleural effusion or pneumothorax. MEDIASTINUM AND HILAR STRUCTURES: No masses or contour abnormalities. HEART AND VASCULAR STRUCTURES: Heart normal size. No evidence for failure. BONES: No acute findings. HARDWARE: None in the chest. OTHER: No other significant finding. IMPRESSION: Mild residual lingular opacities compatible with pneumonia. No pleural effusion. TECHNICAL DOCUMENTATION: JOB ID: [id number] 2010 [employer]- All Rights Reserved Reading location - IP/workstation name: [email or web address]
[2019-09-22] MEDS: CHOLECALCIFEROL (D3) 1,000 UNIT (25 MCG) TABLET PO SCH (09:18)
[2019-09-22] MEDS: BUSPIRONE HCL 10 MG TABLET PO SCH (09:18)
[2019-09-22] MEDS: FAMOTIDINE 20 MG TABLET PO SCH (09:18)
[2019-09-22] MEDS: DULOXETINE HCL 30 MG CAPSULE.DR PO SCH (09:18)
[2019-09-22] MEDS: AZITHROMYCIN 500 MG in DEXTROSE 5%-WATER 250 ML IV SCH (09:18)
[2019-09-22] MEDS: DOCUSATE SODIUM 100 MG CAPSULE PO SCH (09:25)
--- NOTE | 2019-09-22 11:12 | PDOC DISCHARGE SUMMARY ---
Impression - Admit/DC Date/PCP Admission Date/Primary Care Provider: 09/19/19 02:11 MEI LANDAVERDE, ZENIA-C Discharge Date: 09/22/19 - Discharge Diagnosis (1) Pneumonia Is this a current diagnosis for this admission?: Yes (2) Anxiety Is this a current diagnosis for this admission?: Yes (3) Chest pain, pleuritic Is this a current diagnosis for this admission?: Yes (4) Hypotension Is this a current diagnosis for this admission?: Yes (5) Multiple sclerosis Is this a current diagnosis for this admission?: Yes (6) Tachycardia Is this a current diagnosis for this admission?: Yes (7) Tobacco use disorder, continuous Is this a current diagnosis for this admission?: No - Assessment Summary: Patient will be admitted to the medical floor where she will receive routine supportive and symptomatic cares. She will be continued on IV fluid at 167 mL/h using normal saline with 20 mEq of KCl per liter. Her fever will be controlled with Tylenol as required. Her blood pressure and tachycardia were monitored closely with fluid bolus or other intervention provided as required. She will use morphine sulfate 2 to 4 mg IV every 2 hours as needed for pain. She will use Ativan 1 mg IV every 4 hours as needed anxiety or restlessness. She will enjoy a regular diet. CBCs, metabolic profiles and magnesium levels will be fol lowed as appropriate. Patient will receive supplemental oxygen as required to maintain adequate oxygen saturation. She will be continued on her usual home medications, as appropriate, as soon as her medication list has been verified and reconciled. A nicotine replacement patch is available for the patient's use, if desired. Smoking cessation has been advised and counseled briefly at the bedside. 09/20/2019 Patient continues to be afebrile 98 3 , pulse is between 80 and 100 , blood pressure is normal for her 97/65 ,O2 sat 95% on room air White count is gone down slightly to 10.1 blood cultures negative x24 hours. Have added Percocet every 6 hours as needed her medicine for multiple sclerosis has been added. Unfortunately we do not have Lunesta here These were all medicine she was on at home which she was taking at home. Also added BuSpar for anxiety, which seems to be worse because of her mother's health condition and the fact that the patient is in the hospital here. Patient appears to be stable from her pneumonia which is her admitting diagnosis, patient came in with fever and pleuritic left-sided chest wall pain. Plain chest film did not show pneumonia however CT scan did. She is currently on IV Zithromax (1) Pneumonia Is this a current diagnosis for this admission?: Yes Plan: 09/21/2019-patient admitted for chest pains found to have a fever of 103 and a chest x-ray and CT scan indicated of multifocal pneumonia. Cover test is negative. Blood cultures are negative. WBC count this morning is 8900. T-max is 99. Pulse ox is 95% on room air. Patient is presently on Zithromax 500 mg IV daily. plan is to repeat the chest x-ray tomorrow and labs tomorrow. Again counseling was provided. 09/22/2019-patient admitted with multifocal pneumonia, cover test is negative. Blood cultures are negative. Follow-up chest x-ray is pending. T-max is 99 last night. Patient is requesting to repeat the call with test. We can to be in touch with the [facility] for further advice. 09/22/2019-as per [facility] infectious disease control patient does not need COVID retesting. Patient understood verbalized response and agreed. She is going home today on levofloxacin 5 mg p.o. daily for 1 week. (2) Anxiety Is this a current diagnosis for this admission?: Yes Plan: 09/21/2019-patient is presently on BuSpar 10 mg p.o. every 12 hours, Cymbalta 60 mg daily, lorazepam 1 mg every 4 as needed. Denies any anxiety depression at this time. (3) Chest pain, pleuritic Is this a current diagnosis for this admission?: Yes Plan: 09/21/2019-patient is still complaining of left-sided chest pain receiving morphine 2 mg IV every 4 as needed, Percocet 1 tablet every 6 as needed. Plan is to continue the present management at this time. To arrange for a K pad to place in the left side of the chest. 09/22/19-came in with pleuritic chest pain most likely secondary to underlying pneumonia. (4) Hypotension Qualifiers: Hypotension type: unspecified hypotension type Qualified Code(s): I95.9 - Hypotension, unspecified Is this a current diagnosis for this admission?: Yes Plan: 09/21/2019-blood pressure today is 106/63 asymptomatic. Plan is to hold spironolactone for today. 09/22/2019-blood pressure today is 100/70. Asymptomatic. (5) Multiple sclerosis Is this a current diagnosis for this admission?: Yes (6) Tachycardia Is this a current diagnosis for this admission?: Yes Plan: 09/21/2019-heart rate today 68. Tachycardia is resolved. (7) Tobacco use disorder, continuous Is this a current diagnosis for this admission?: No Plan: 09/21/2019-patient is a daily smoker smoking for the last 4 years. Smoking counseling was provided. Advised to quit smoking. - Additional Information Resuscitation Status: Full Code Discharge Diet: Diabetic Discharge Activity: Activity As Tolerated Referrals: MEI LANDAVERDE NP-C [Primary Care Provider] - Follow up as needed Home Medications: Cholecalciferol (Vitamin D3) [Vitamin D3 1000 Unit Tablet] 5,000 unit PO DAILY 09/19/19 Dimethyl Fumarate [Tecfidera] 240 mg PO BID 09/19/19 Duloxetine HCl 60 mg PO DAILY 09/19/19 Eszopiclone 2 mg PO HSP PRN 09/19/19 Metformin HCl [Metformin HCl ER] 500 mg PO WSUPPER 09/19/19 Oxycodone HCl/Acetaminophen [Percocet 5-325 mg Tablet] 1 tab PO QIDP PRN 09/19/19 History of Present Illiness History of Present Illness: JASSON FLORIAN is a 34 year old female 34 year old female who presented to the emergency room a 2-day history of chest pain. She admits to intermittent exquisitely severe sharp pain with deep breathing or cough first appearing 2 days ago with a gradual increase in severity. Her chest pains generally last less than a minute before resolving spontaneously and are noted to be in the left anterior chest and are most greatly worsened by attempting to lay on her left side. Her chest pain has been accompanied by dyspnea, rhinorrhea, pharyngitis and a nonproductive cough. Chest pain has been associated with fever, chills, diaphoresis, malaise and ague. 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 She denies other associated or accompanying signs and symptoms. She denies prior similar episodes. She has not identified any additional aggravating or ameliorating factors for her chest pain. In the emergency room she was found to be febrile, hypotensive and tachycardic. She was treated with IV fluids and acetaminophen with partial defervescence and lessening of her tachycardia however she still remained hypotensive with a blood pressure of 85/51 (MAP 61). Influenza A and B screens were negative. Strep screen, d-dimer and COVID-19 screen were negative. Hospital Course Hospital Course: 34 year old female who presented to the emergency room a 2-day history of chest pain. She admits to intermittent exquisitely severe sharp pain with deep breathing or cough first appearing 2 days ago with a gradual increase in severity. Her chest pains generally last less than a minute before resolving spontaneously and are noted to be in the left anterior chest and are most greatly worsened by attempting to lay on her left side. Her chest pain has been accompanied by dyspnea, rhinorrhea, pharyngitis and a nonproductive cough. Chest pain has been associated with fever, chills, diaphoresis, malaise and ague. 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 She denies other associated or accompanying signs and symptoms. She denies prior similar episodes. She has not identified any additional aggravating or ameliorating factors for her chest pain. In the emergency room she was found to be febrile, hypotensive and tachycardic. She was treated with IV fluids and acetaminophen with partial defervescence and lessening of her tachycardia however she still remained hypotensive with a blood pressure of 85/51 (MAP 61). Influenza A and B screens were negative. Strep screen, d-dimer and COVID-19 screen were negative. 09/20/2019 Pneumonia, left chest wall pain, tachycardia, sepsis, anxiety, depression, fever, tobacco abuse, multiple sclerosis 09/21/2019-patient is comfortably in the bed communicating well. Still complaining of left-sided chest pain. On IV morphine 2 mg every 4 hours and also on Percocets. Blood cultures are negative so far. COVID testing is negative. T-max is 99.0 this morning. And is to repeat the chest x-ray tomorrow white cell count is within normal limits. She is a smoker smoking counseling was provided today. 09/22/19-at the time of admission Covid test is came back negative. Patient is requesting to repeat the cover test. She is concerned about false negatives. We are going to call [facility] to go through the case and get further advice. Chest x-ray was done this morning as a follow-up report is pending. Patient has a T-max of 99 last night she is concerned about fever. This morning T-max is 98. Blood cultures are negative. Cultures came back group B stre ptococcus normal respiratory rohit. 09/22/2019-COVID retesting is not necessary as per [facility].. Patient agreed to go home today. Patient is cleared to go back to work from Friday. To give a prescription for levofloxacin 500 mg p.o. daily for 1 week. Physical Exam Vital Signs: Temp Pulse Resp BP Pulse Ox 97.7 F 71 16 90/48 L 94 09/22/19 03:38 09/22/19 07:00 09/22/19 03:38 09/22/19 03:38 09/22/19 03:38 Intake & Output 09/21/19 09/22/19 09/23/19 06:59 06:59 06:59 Intake Total 1080 2807 250 Output Total 800 2050 Balance 280 757 250 Weight 58.9 kg 62 kg General appearance: PRESENT: no acute distress, well-developed Head exam: PRESENT: atraumatic Eye exam: PRESENT: PERRLA Mouth exam: PRESENT: moist, tongue midline Neck exam: ABSENT: carotid bruit, JVD, lymphadenopathy, thyromegaly Respiratory exam: PRESENT: decreased breath sounds Cardiovascular exam: PRESENT: RRR. ABSENT: diastolic murmur, rubs, systolic m urmur Pulses: PRESENT: normal dorsalis pedis pul GI/Abdominal exam: PRESENT: normal bowel sounds, soft. ABSENT: distended, guarding, mass, organolmegaly, rebound, tenderness Rectal exam: PRESENT: deferred Extremities exam: PRESENT: full ROM. ABSENT: calf tenderness, clubbing, pedal edema Neurological exam: PRESENT: alert, awake, oriented to person, oriented to place, oriented to time, oriented to situation, CN II-XII grossly intact. ABSENT: motor sensory deficit Results Laboratory Results: WBC 7.1 10^3/uL (4.0-10.5) 09/22/19 05:35 RBC 3.20 10^6/uL (3.72-5.28) L 09/22/19 05:35 Hgb 10.7 g/dL (12.0-15.5) L 09/22/19 05:35 Hct 30.6 % (36.0-47.0) L 09/22/19 05:35 MCV 95 fl (80-97) 09/22/19 05:35 MCH 33.4 pg (27.0-33.4) 09/22/19 05:35 MCHC 35.1 g/dL (32.0-36.0) 09/22/19 05:35 RDW 12.6 % (11.5-14.0) 09/22/19 05:35 Plt Count 207 10^3/uL (150-450) 09/22/19 05:35 Lymph % (Auto) 27.9 % (13-45) 09/22/19 05:35 Bleckley % (Auto) 9.9 % (3-13) 09/22/19 05:35 Eos % (Auto) 4.0 % (0-6) 09/22/19 05:35 Baso % (Auto) 0.4 % (0-2) 09/22/19 05:35 Absolute Neuts (auto) 4.1 10^3/uL (1.7-8.2) 09/22/19 05:35 Absolute Lymphs (auto) 2.0 10^3/uL (0.5-4.7) 09/22/19 05:35 Absolute Monos (auto) 0.7 10^3/uL (0.1-1.4) 09/22/19 05:35 Absolute Eos (auto) 0.3 10^3/uL (0.0-0.6) 09/22/19 05:35 Absolute Basos (auto) 0.0 10^3/uL (0.0-0.2) 09/22/19 05:35 Seg Neutrophils % 57.8 % (42-78) 09/22/19 05:35 ESR 26 mm/hr (0-20) H 09/19/19 08:59 PT 13.6 SEC (11.4-15.4) 09/18/19 23:25 INR 1.04 09/18/19 23:25 D-Dimer 0.35 ug/mL (0.00-0.50) 09/18/19 23:25 Sodium 138.0 mmol/L (137-145) 09/22/19 05:35 Potassium 3.8 mmol/L (3.6-5.0) 09/22/19 05:35 Chloride 106 mmol/L (98-107) 09/22/19 05:35 Carbon Dioxide 24 mmol/L (22-30) 09/22/19 05:35 Anion Gap 8 (5-19) 09/22/19 05:35 BUN 14 mg/dL (7-20) 09/22/19 05:35 Creatinine 0.57 mg/dL (0.52-1.25) 09/22/19 05:35 Est GFR ( Amer) > 60 (>60) 09/22/19 05:35 Est GFR (MDRD) Non-Af > 60 (>60) 09/22/19 05:35 Glucose 92 mg/dL (75-110) 09/22/19 05:35 Lactic Acid 1.0 mmol/L (0.7-2.1) 09/18/19 23:00 Calcium 8.4 mg/dL (8.4-10.2) 09/22/19 05:35 Magnesium 1.9 mg/dL (1.6-2.3) 09/22/19 05:35 Total Bilirubin < 0.1 mg/dL (0.2-1.3) L 09/22/19 05:35 Direct Bilirubin mg/dL (0.0-0.4) 09/22/19 05:35 Neonat Total Bilirubin Not Reportable 09/22/19 05:35 Neonat Direct Bilirubin Not Reportable 09/22/19 05:35 Neonat Indirect Bili Not Reportable 09/22/19 05:35 AST 14 U/L (14-36) 09/22/19 05:35 ALT 20 U/L (<35) 09/22/19 05:35 Alkaline Phosphatase 46 U/L (38-126) 09/22/19 05:35 Creatine Kinase 56 U/L (30-135) 09/18/19 23:25 CK-MB (CK-2) < 0.22 ng/mL (<4.55) 09/18/19 23:25 Troponin I < 0.012 ng/mL 09/18/19 23:25 C-Reactive Protein 87.1 mg/L (<10.0) H 09/19/19 08:57 Total Protein 5.6 g/dL (6.3-8.2) L 09/22/19 05:35 Albumin 3.3 g/dL (3.5-5.0) L 09/22/19 05:35 TSH 1.69 uIU/mL (0.47-4.68) 09/18/19 23:25 Free T3 pg/mL 4.60 pg/mL (2.77-5.27) 09/18/19 23:25 Urine Color YELLOW 09/19/19 01:35 Urine Appearance CLEAR 09/19/19 01:35 Urine pH 6.0 (5.0-9.0) 09/19/19 01:35 Ur Specific Hawley 1.005 09/19/19 01:35 Urine Protein NEGATIVE mg/dL (NEGATIVE) 09/19/19 01:35 Urine Glucose (UA) NEGATIVE mg/dL (NEGATIVE) 09/19/19 01:35 Urine Ketones NEGATIVE mg/dL (NEGATIVE) 09/19/19 01:35 Urine Blood SMALL (NEGATIVE) H 09/19/19 01:35 Urine Nitrite NEGATIVE (NEGATIVE) 09/19/19 01:35 Urine Bilirubin NEGATIVE (NEGATIVE) 09/19/19 01:35 Urine Urobilinogen NEGATIVE mg/dL (<2.0) 09/19/19 01:35 Ur Leukocyte Esterase NEGATIVE (NEGATIVE) 09/19/19 01:35 Urine WBC (Auto) 1 /HPF 09/19/19 01:35 Urine RBC (Auto) 1 /HPF 09/19/19 01:35 Urine Bacteria (Auto) TRACE /HPF 09/19/19 01:35 Squamous Epi Cells Auto 1 /HPF 09/19/19 01:35 Urine Mucus (Auto) RARE /LPF 09/19/19 01:35 Urine Ascorbic Acid NEGATIVE (NEGATIVE) 09/19/19 01:35 Urine HCG, Qual NEGATIVE (NEGATIVE) 09/19/19 01:35 COVID-19 Source Cancelled 09/19/19 01:45 COVID-19 (LISSY) Cancelled 09/19/19 01:45 Influenza A (Rapid) NEGATIVE (NEGATIVE) 09/19/19 00:30 Influenza B (Rapid) NEGATIVE (NEGATIVE) 09/19/19 00:30 SARS-CoV-2 (PCR) NEGATIVE (NEGATIVE) 09/19/19 01:48 Group A Strep Rapid NEGATIVE (NEGATIVE) 09/19/19 01:35 09/18/19 23:25 CK-MB (CK-2) < 0.22 Troponin I < 0.012 Impressions: Chest X-Ray 09/18/19 22:36 IMPRESSION: No evidence of acute cardiopulmonary disease. Chest CT 09/19/19 00:00 IMPRESSION: 1. Multifocal pneumonia, left upper lobe and right middle lobe. Chest X-Ray 09/22/19 06:00 IMPRESSION: Mild residual lingular opacities compatible with pneumonia. No pleural effusion. Plan Plan of Treatment: Patient is strongly advised to quit smoking, given a prescription for levo floxacillin 40 mg p.o. daily for 1 week and she is cleared to go back to work from Friday. She is also advised to follow-up with PCP in 2 to 3 days time. Time Spent: Greater than 30 Minutes Stroke Is this a Stroke Patient?: No Acute Heart Failure - Is this a Heart Failure Patient?: No
[2019-09-22 12:04] VITALS: BP 104/71
[2019-09-23] MEDS ORDERED: LEVOFLOXACIN 500 MG TABLET PO SCH (10:00)
== END 2019-09-22 12:45 | disposition home or self-care (01) | DRG 195 ==
LOC: ER 22:28 → EH 09-19 02:11 → OBSVTOIN 09-19 02:11 → 3W 09-19 03:58
PROVIDERS: ADMIT Emergency Medicine; ATTEND Internal Medicine
DX: J18.9 Pneumonia, unspecified organism (principal); F41.9 Anxiety disorder, unspecified; F32.9 Major depressive disorder, single episode, unspecified; G35 Multiple sclerosis; R00.0 Tachycardia, unspecified; Z20.818 Contact with and (suspected) exposure to other bacterial communicable diseases; I95.9 Hypotension, unspecified; F17.200 Nicotine dependence, unspecified, uncomplicated; Z82.49 Family history of ischemic heart disease and other diseases of the circulatory system; Z83.3 Family history of diabetes mellitus
CPT/HCPCS: 36415; 71045; 71046; 71250; 80048; 80053; 81001; 81025; 82550; 82553; 83605; 83735; 84443; 84481; 84484; 85025; 85027; 85379; 85610; 85652; 86140; 87040; 87070; 87077; 87635; 87804; 87880; 93005; 93010; 96361; 96374; 99285; J0456; J1644; J1885; J2060; J2270; J3480; J3490; J7030; J7060; J7120

== ENCOUNTER → 2019-09-23 | Outpatient (CLI) | payer OTHER ==
--- NOTE | 2019-09-23 11:07 | ER RDC ASSESSMENT REPORT ---
Intake - In the Last 14 days Have you traveled outside [place]?: No Have you been in close contact with someone CONFIRMED: No Worked in Healthcare?: Yes - Symptoms Subjective Fever(Starks feverish): Yes Chills: Yes Muscule Aches: Yes Runny Nose: Yes Sore Throat: Yes Cough (New or worsening chronic cough): Yes Shortness of breath: Yes Nausea or Vomiting: No Headache: No Abdominal Pain: No Diarrhea(3 or more loose stools in last 24 hours): No - Do you have any of the following Chronic lung disease: Asthma or emphysema or COPD: No Cystic Fibrosis: No Diabetes: No High Blood Pressure: No Cardiovascular Disease: Yes Cardiovascular Disease Comment: WPW Chronic Kidney Disease: Yes Chronic Kidney Disease Comment: kidney stones Chronic Liver Disease: No Chronic blood disorder like Sickle Cell Disease: No Weak immune system due to disease or medication: Yes Immune System Comment: MS Neurologic condition that limits movement: No Developmental delay - Moderate to Severe: No Recent (within past 2 weeks) or current : No - Objective Temperature: 97.9 F Pulse Rate: 62 Respiratory Rate: 20 Blood Pressure: 102/55 O2 Sat by Pulse Oximetry: 100 Objective: Given above, testing performed: If Testing Performed: Test Specimen Type Sent to General - General Information source: Patient Notes: Patient presents for screening for the coronavirus at the [facility] center. Patient had recently been admitted to the hospital with multifocal pneumonia. Patient was discharged from the hospital 3 days ago. 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 denies: CAD, Malignancy - Medical History Medical History: Other - MS - Past Medical History Cardiac Medical History: Reports: Other - WPW Denies: Hx Coronary Artery Disease, Hx DVT, Hx Hypercholesterolemia, Hx Hypertension, Hx Pulmonary Embolism Pulmonary Medical History: Denies: Hx Asthma, Hx COPD Neurological Medical History: Denies: Hx Seizures Endocrine Medical History: Denies: Hx Diabetes Mellitus Type 1, Hx Diabetes Mellitus Type 2, Hx Hyperthyroidism, Hx Hypothyroidism Renal/ Medical History: Reports: Hx Ovarian Cysts GI Medical History: Denies: Hx Cirrhosis, Hx Crohn's Disease, Hx Gastroesophageal Reflux Disease, Hx Hepatitis, Hx Ulcerative Colitis Skin Medical History: Denies Hx Eczema, Denies Hx Psoriasis Psychiatric Medical History: Denies: Hx Depression Infectious Medical History: Denies: Hx Hepatitis Past Surgical History: Reports: Hx Section - X 3, Hx Tonsillectomy, Hx Tubal Ligation, Other - Double-J tubes x3 and a percutaneous nephrostomy for kidney stones Physical Exam - Notes Notes: Full physical exam could not be performed due to covid 19 isolation protocols. Constitutional: Nontoxic appearance, no acute distress Eyes: Nonicteric, extraocular movements intact, sclera clear Cardiovascular: Heart rate and rhythm regular without murmur Respiratory: Dry cough, rhonchi that clears with coughing, faint scattered wheezing nonlabored breathing, no use of accessory muscles, no tachypnea Gastrointestinal: Abdomen not distended Muculoskeletal: Moves all extremities well Skin: Normal color Neuro: Awake alert oriented, normal speech Psych: Normal mood and affect Diagnostic Results Laboratory Results: The patient was evaluated during the global Covid 19 pandemic, and that diagnosis was suspected/considered upon their initial presentation. Their evaluation, treatment and testing was consistent with current guidelines for patients who present with complaints or symptoms that may be related to Covid 19. Patient presents with upper respiratory symptoms worrisome for possible Covid 19. Patient appears suitable for discharge as vital signs are stable and patient is nontoxic in appearance. Good return precautions have been discussed with patient, patient verbalized understanding and is agreeable with discharge plan of care at this time. Patient Education/Counseling Counseling/Education: Patient was provided with discharge information including: As a person under investigation for Covid 19, the [place] department of Health and Human Services, division of public health advises you to adhere to the following guidance until your test results are reported to you. If your test result is positive, you will receive additional information from your provider and your local health department at that time. Remain at home until you are cleared by the health provider or public health authorities. Keep a log of visitors to your home, notify any visitors to your home of your isolation status. If you plan to move to a new address or leave the county, notify the local health department in your County. Call your doctor or seek care if you have an urgent medical need. Before seeking medical care, call ahead to get instructions from the provider before arriving at the medical office clinic or hospital. Notify them that you are being tested for the virus that causes Covid 19 so that arrangements can be made, as necessary, to prevent transmission to others in the healthcare setting. Next, notify the local health department in your county. If a medical emergency arises and you need to call 911, inform the first responders that you are being tested for the virus that causes Covid 19. Next, notify the local health department in your county. RDC Discharge - Discharge Clinical Impression: COVID-19 screening Condition: Stable Disposition: Home; Selfcare
[2019-09-23 11:08] VITALS: BP 102/55
[2019-09-23 13:30] LABS: A TYPE INFLUENZA AG NEGATIVE (NEGATIVE); B INFLUENZA AG NEGATIVE (NEGATIVE)
== END ==
LOC: RDC 10:03
PROVIDERS: ATTEND Nurse Practitioner Family
DX: Z20.828 Contact with and (suspected) exposure to other viral communicable diseases (principal); R50.9 Fever, unspecified; R05 Cough; J02.9 Acute pharyngitis, unspecified; R06.02 Shortness of breath; R09.89 Other specified symptoms and signs involving the circulatory and respiratory systems; G35 Multiple sclerosis; M79.10 Myalgia, unspecified site; I45.6 Pre-excitation syndrome; Z87.891 Personal history of nicotine dependence; Z87.01 Personal history of pneumonia (recurrent)
CPT/HCPCS: 87070; 87635; 87804; 87880; 99211